=== PATIENT | female | born 1955 | race Caucasian/White ===

== ENCOUNTER → 2024-08-05 13:16 | Outpatient (REF) | payer MEDICARE, OTHER, SELFPAY | LOC: HWRAD 13:16 | PROVIDERS: ATTENDING PHYSICIAN Nurse Practitioner | DX: R05.1 Acute cough (principal) | CPT/HCPCS: 71046 ==

== ENCOUNTER → 2024-09-30 11:06 | Outpatient (REF) | payer MEDICARE, OTHER, SELFPAY | LOC: HWRCS 11:06 | PROVIDERS: ATTENDING PHYSICIAN Nurse Practitioner Adult Health | DX: R01.1 Cardiac murmur, unspecified (principal) | CPT/HCPCS: 93306 ==

== ENCOUNTER → 2024-10-22 15:20 | Outpatient (REF) | payer MEDICARE, OTHER, SELFPAY | LOC: CLAB 15:20 | PROVIDERS: ATTENDING PHYSICIAN Otolaryngology | DX: H90.11 Conductive hearing loss, unilateral, right ear, with unrestricted hearing on the contralateral side (principal) | CPT/HCPCS: 87070; 87077 ==

== ENCOUNTER → 2024-11-19 12:42 | Outpatient (REF) | payer MEDICARE, OTHER, SELFPAY | LOC: RSP 12:42 | PROVIDERS: ATTENDING PHYSICIAN Allergy & Immunology | DX: J45.40 Moderate persistent asthma, uncomplicated (principal) | CPT/HCPCS: 94727; 94729; 88738; 94060 ==

== ENCOUNTER → 2025-09-08 16:00 | Outpatient (REF) | payer MEDICARE, OTHER, SELFPAY | LOC: CLAB 16:00 | PROVIDERS: ATTENDING PHYSICIAN Otolaryngology | DX: H60.331 Swimmer's ear, right ear (principal) | CPT/HCPCS: 87070 ==